=== PATIENT | female | born 2005 | race Caucasian/White ===

== ENCOUNTER 2024-08-13 16:09 | Emergency (ER) | payer SELFPAY ==
[~2024-08-13] VITALS: Ht 170.2 cm; Wt 70.0 kg
[2024-08-13 16:13] VITALS: TEMP 98.3
[2024-08-13 17:47] VITALS: BP 116/68; PULSE 62
== END 2024-08-13 17:45 | disposition home or self-care (01) ==
LOC: COL.ER 16:09
DX: S60.221A Contusion of right hand, initial encounter (principal); W22.01XA Walked into wall, initial encounter; Y92.89 Other specified places as the place of occurrence of the external cause